=== PATIENT | female | born 1980 | race Caucasian/White ===

== ENCOUNTER 2022-01-14 14:58 | Outpatient (CLI) | payer OTHER, SELFPAY ==
--- NOTE | ~2022-01-14 | MM_ITS ---
EXAMINATION: MM screening micheal BI w marisa HISTORY: Screening mammogram TECHNIQUE: Craniocaudal and mediolateral oblique 3-D tomosynthesis images were obtained and synthetic 2-D images were generated. CAD analysis was submitted and interpreted. COMPARISON: No prior mammogram is available for comparison at this institution. BREAST PARENCHYMAL COMPOSITION: There are scattered areas of fibroglandular density. FINDINGS: There is no evidence of suspicious mass, calcification, or architectural distortion to sugg est malignancy in either breast. There has been no suspicious interval change. IMPRESSION: 1. No mammographic evidence of malignancy. 2. Recommend routine screening mammography in one year. BI-RADS Category 1: Negative Reviewed, dictated and finalized at location A.
== END 2022-01-14 14:59 | disposition home or self-care (01) ==
LOC: ANHIMG 15:05
PROVIDERS: Visit Provider Nurse Practitioner
DX: Z12.31 Encounter for screening mammogram for malignant neoplasm of breast (principal)
CPT/HCPCS: 77063; 77067

== ENCOUNTER 2023-02-23 10:10 | Outpatient (CLI) | payer OTHER, SELFPAY ==
--- NOTE | ~2023-02-23 | MM_ITS ---
EXAMINATION: MM screening micheal BI w marisa HISTORY: Screening mammogram TECHNIQUE: Craniocaudal and mediolateral oblique 3-D tomosynthesis images were obtained and synthetic 2-D images were generated. CAD analysis was submitted and interpreted. COMPARISON: 01/14/2022 bilateral screening mammogram BREAST PARENCHYMAL COMPOSITION: There are scattered areas of fibroglandular density. FINDINGS: There is no evidence of suspicious mass, calcification, or architectural distortion to sugg est malignancy in either breast. There has been no suspicious interval change. IMPRESSION: 1. No mammographic evidence of malignancy. 2. Recommend routine screening mammography in one year. BI-RADS Category 1: Negative Reviewed, dictated and finalized at location A.
== END 2023-02-23 10:11 | disposition home or self-care (01) ==
PROVIDERS: Visit Provider Nurse Practitioner
DX: Z12.31 Encounter for screening mammogram for malignant neoplasm of breast (principal)
CPT/HCPCS: 77063; 77067

== ENCOUNTER 2023-11-11 10:54 | Outpatient (CLI) | payer OTHER, SELFPAY ==
--- NOTE | ~2023-11-11 | MR_ITS ---
MRI of the lumbar spine Clinical History: Radiculopathy Technique: Axial T2-weighted images, and sagittal T1-weighted, T2-weighted, and and T2 fat-sat images were acquired. Findings: There is no fracture or sublocation of the lumbar spine. Vertebral bodies maintain normal h eight and alignment. No bone marrow signal abnormality seen. No significant disc bulge or herniation seen at any lumbar level. There are moderate facet joint dege nerative changes at L4-L5 and L5-S1. No spinal canal stenosis or neural foraminal narrowing evident i n the lumbar spine. Paravertebral soft tissues are unremarkable. Impression: Minimal degenerative change, as above. Reviewed, dictated and finalized at location M. Impression: Minimal degenerative change, as above.
== END 2023-11-11 10:55 ==
LOC: MICIMG 10:55
PROVIDERS: PCP Nurse Practitioner Family; Visit Provider Nurse Practitioner Family
DX: M54.16 Radiculopathy, lumbar region (principal)
CPT/HCPCS: 72148

== ENCOUNTER 2024-01-19 13:21 | Outpatient (CLI) | payer OTHER, SELFPAY ==
--- NOTE | ~2024-01-19 | US_ITS ---
US pelvic complete Ordering provider: Esme Gracia MD History: . abnormal uterine bleeding . Comparison: None. Technique: Transabdominal and endovaginal ultrasound of the pelvis (Doppler ultrasound interrogation techniques used as needed for this exam.) FINDINGS: CERVIX: Normal. UTERUS: Measures 7.9x 4.6x 5.6 cm in length which is within normal limits and is anteverted. No myom etrial masses. ENDOMETRIUM: Normal in thickness measuring 7 mm. No endometrial masses, cysts or fluid. CUL DE SAC: No free fluid. RIGHT OVARY: Normal in size measuring 2.9x 1.7x 2.3 cm. Normal echotexture. Doppler vascular flow pre sent. LEFT OVARY: Normal in size measuring 2.3x 1.5x 2.1 cm. Normal echotexture. Doppler vascular flow pres ent. ADNEXA: Normal. No mass. IMPRESSION: normal pelvic ultrasound. Reviewed, dictated and finalized at location A. IMPRESSION: normal pelvic ultrasound.
== END 2024-01-19 13:22 ==
LOC: MICIMG 13:22
PROVIDERS: PCP Obstetrics & Gynecology Gynecology; Visit Provider Obstetrics & Gynecology Gynecology
DX: N93.8 Other specified abnormal uterine and vaginal bleeding (principal)
CPT/HCPCS: 76856

== ENCOUNTER 2024-05-12 15:42 | Outpatient (CLI) | payer OTHER, SELFPAY ==
--- NOTE | ~2024-05-12 | MM_ITS ---
EXAMINATION: MM screening micheal BI w marisa HISTORY: Screening mammogram TECHNIQUE: Craniocaudal and mediolateral oblique 3-D tomosynthesis images were obtained and synthetic 2-D images were generated. CAD analysis was submitted and interpreted. COMPARISON: 02/23/2023, 01/14/2022 bilateral screening mammogram examinations BREAST PARENCHYMAL COMPOSITION: There are scattered areas of fibroglandular density FINDINGS: There is no evidence of suspicious mass, calcification, or architectural distortion to sugg est malignancy in either breast. There has been no suspicious interval change. IMPRESSION: 1. No mammographic evidence of malignancy. 2. Recommend routine screening mammography in one year. BI-RADS Category 1: Negative Reviewed, dictated and finalized at location A. PURSER
== END 2024-05-12 15:43 | disposition home or self-care (01) ==
LOC: ANHIMG 15:44
PROVIDERS: Visit Provider Obstetrics & Gynecology Gynecology
DX: Z12.31 Encounter for screening mammogram for malignant neoplasm of breast (principal)
CPT/HCPCS: 77063; 77067

== ENCOUNTER 2024-08-10 13:14 | Outpatient (CLI) | payer OTHER, SELFPAY ==
--- NOTE | 2024-08-10 | ECG_ITS ---
Test Date: 2024-08-10 13:41:24 Measurements Intervals [place] Rate: 63 P: 70 WA: 159 QRS: 54 QRSD: 90 T: 47 QT: 406 QTc: 416 Interpretive Statements SINUS RHYTHM WITH SINUS ARRHYTHMIA BASELINE ARTIFACT- II, III, AVR, AVL, AVF NORMAL ECG No previous ECG available for comparison Electronically Signed On 08-10-2024 13:46:16 MRI SPECIALIST by Jerry Vázquez D.O.
--- OUTSIDE RECORDS SUMMARY | 2024-08-10 13:27 | XMS_ITS | Encounter Summary ---
Author Organization [facility] Address [address] [place] [address] Care Team Providers Care Longwall Shearer Operator Name Role Phone Lucy Vaughn Primary Care Provider Reason for Visit * Reason Onset Date Comments MEDICATION REFILL 09/28/2023 Encounter Details Date Type Department Care Team (Late st Contact Info) Description 09/28/[address] [facility] Medical [facility] - Family Medicine [address] [place] [phone] Lucy Vaughn APRN-CNP [address] [place] [phone] MEDICATION REFILL Social History Tobacco Use Types Packs/Day Years Used Date Smoking Tobacco: Never Smokeless Tobacco: Never Alcohol Use Standard Drinks/Week Comments Yes 0 (1 standard drink = 0.6 oz pur e alcohol) occasionally wine PHQ-2 Answer Date Recorded Patient Health Questionnaire-2 Score 0 08/05/2023 Sex and Gender Information Value Date Recorded Sex Assigned at Not on file Gender Identity Not on file Sexual Orientation Not on file documented as of this encounter Plan of Treatment Not on file documented as of this encounter Visit Diagnoses Diagnosis Chronic pain of left knee Pain in joint, lower leg Chronic bilateral low back pain, unspecified whether sciatica present Fibromyalgia Mylagia and myositis, unspecified documented in this encounter Care Teams Longwall Shearer Operator Relationship Specialty Start Date End Date Lucy Vaughn APRN-CNP PCP - General Nurse Practitioner 07/24/16 documented as of this encounter
--- OUTSIDE RECORDS SUMMARY | 2024-08-10 13:27 | XMS_ITS | Clinical Summary ---
Author Organization [facility] Address [address] [place] [id number] Care Team Providers Care Turner Machine Name Role Phone Unavailable Primary Care Provider Unavailabl e Social History Tobacco Use Types Packs/Day Years Used Date Smoking Tobacco: Never Assessed Comments Unknown Sex and Gender Information Value Date Recorded Sex Assigned at Not on file Legal Sex Female 8:25 PM CDT Gender Identity Not on file Sexual Orientation Not on file Last Filed Vital Signs Vital Sign Reading Time Taken Comments Blood Pressure 127/84 04/09/2017 8:32 AM CDT Pulse 90 04/09/2017 8:32 AM CDT Temperature - - Respiratory Rate - - Oxygen Saturation - - Inhaled Oxygen Concentration - - Weight 87.5 kg (193 lb) 04/09/2017 8:32 AM CDT Height 160 cm (5' 3 ) 04/09/2017 8:32 AM CDT Body Mass Index 34.19 04/09/2017 8:32 AM CDT Plan of Treatment Health Maintenance Due Date Last Done Comments Cervical Cancer Screening Pa p Smear (Age 30 to 64) Every 3 Years 1982 Annual Physical 1985 Hepatitis C 2000 DTaP, Tdap and Td Vaccines ( 1 - Tdap) 2001 Hepatitis B Vaccines (1 of 3 - 19+ 3-dose series) 2001 Cervical Cancer Screening Pa p with HPV Testing (Age 30 to 64) Every 5 Years 2012 Cervical Cancer Screening with HPV 2012 Mammogram Screening 2022 COVID-19 Vaccine ( - 2023-2 5 season) 2024 Influenza Adult (#1) 2024 HPV Vaccines Aged Out No longer eligi ble based on patient's age to complete this topic Meningococcal B Vaccine Aged Out No l onger eligible based on patient's age to complete this topic Meningococcal Vaccine Aged Out No jessica nan eligible based on patient's age to complete this topic Pneumococcal Vaccine: Pediat rics (0 to 5 Years) and At-Risk Patients (6 to 64 Years) Aged Out No longer eligible b ased on patient's age to complete this topic RSV Immunizations Under 20 Months Aged Out No longer eligible based on patient's age to complete this topic
--- OUTSIDE RECORDS SUMMARY | 2024-08-10 13:27 | XMS_ITS | Clinical Summary ---
Author Organization [facility] Physician Office Building [address] [place] [phone] Care Team Providers Care Diver'S Tender Name Role Phone Unknown, Notinfile Primary Care Provider Unavail able Allergies No known active allergies Medications levothyroxine (SYNTHROID) 88 mcg tablet TAKE 1 TABLET(88 MCG) BY MOUTH RELIABILITY MANAGER AND BEFORE BREAKFAST 90 tablet 3 2 Active Active Problems Problem Noted Date Diagnosed Date Acquired hypothyroidism 03/08/2018 Assessment & Plan (02/25/2021 1:13 PM CDT): Thyroid function tests, including TSH and free T4 were requested Will adjust dose of Levothyroxine accordingly . If there is a need to make changes, will recheck levels in 2-3 months. Instructions to patient on taking medication properly : in the morning, on an empty stomach , 1 h part from food and/or other meds. Assessment & Plan (01/25/2020 10:50 AM CDT): Thyroid function tests, including TSH and free T4 were requested Will adjust dose of Levothyroxine accordingly . If there is a need to make changes, will recheck levels in 2-3 months. Instructions to patient on taking medication properly : in the morning, on an empty stomach , 1 h part from food and/or other meds. Also it was explained , to the patient that if any doses are missed, can take 2-3 tab together ,to make up for the missed dose(s) and to make sure at the end to the week, 7 tabs have been taken. Assessment & Plan (01/17/2019 12:13 PM CDT): Will check TSH and free T4 Will adjust dose of Levothyroxine accordingly . If there is a need to make changes, will recheck levels in 2-3 months. Send 90 d rx Assessment & Plan (07/19/2018 1:42 PM GARBAGE TRUCK DRIVER): Continue Levothyroxine at current dose Assessment & Plan (03/08/2018 9:40 AM CDT): Your goal of treatment is to keep TSH and free T4 within normal range. Take your thyroid medication on empty stomach, preferably in the morning, 1 hour apart from food and other medications. Due to the narrow therapeutic range of Levothyroxine ( small changes in dose make a big difference on thyroid medication blood levels ) , brand name is strongly recommended. The medication should be taken daily. If one or more pills are missing in a week, they can be taken all together at once, making sure at the end of the week, all 7 tabs have been taken. Your goal of treatment is to keep TSH and free T4 within normal range. Take your thyroid medication on empty stomach, preferably in the morning, 1 hour apart from food and other medications. Due to the narrow therapeutic range of Levothyroxine ( small changes in dose make a big difference on thyroid medication blood levels ) , brand name is strongly recommended. The medication should be taken daily. If one or more pills are missing in a week, they can be taken all together at once, making sure at the end of the week, all 7 tabs have been taken. Use of LT3 was also discussed . Will check TFT's Consider adding T3 Will stop Levothyroxine and start Brand -name Synthroid. Medical History Medical History Date Comments Hypothyroidism Family History Medical History Relation Name Comments Hypothyroidism Mother Sherron's thyroiditis Sister Relation Name Status Comments Father Alive Mother Alive Sister Alive Social History Tobacco Use Types Packs/Day Years Used Date Smoking Tobacco: Never Smokeless Tobacco: Never Alcohol Use Standard Drinks/Week Comments No 0 (1 standard drink = 0.6 oz pur e alcohol) PHQ-2 Answer Date Recorded PHQ-2 Total Score (If total score is 3 or more points, staff should administer the PHQ-9) 0 01/25/2020 Personal Safety Answer Date Recorded Getting School Help Needed Not on file 08/20 Comments Unknown Sex and Gender Information Value Date Recorded Sex Assigned at Not on file Legal Sex Female 8:29 AM CDT Gender Identity Not on file Sexual Orientation Not on file Obstetrics History Last Filed Vital Signs Vital Sign Reading Time Taken Comments Blood Pressure 110/70 02/25/2021 12:52 PM CDT Pulse 86 02/25/2021 12:52 PM CDT Temperature 36.7 C (98 F) 05/10/2020 10:07 AM GARBAGE TRUCK DRIVER Respiratory Rate 16 02/25/2021 12:52 PM CDT Oxygen Saturation 100% 05/10/2020 10:07 AM GARBAGE TRUCK DRIVER Inhaled Oxygen Concentration - - Weight 88.7 kg (195 lb 9.6 oz) 02/25/2021 12:52 PM CDT Height 160 cm (5' 2.99 ) 02/25/2021 12:52 PM CDT Body Mass Index 34.66 02/25/2021 12:52 PM CDT Plan of Treatment Not on file Insurance [facility] CLAIMS Care Teams Diver'S Tender Relationship Specialty Start Date End Date Unknown, Notinfile PCP - General 02/15/18
--- OUTSIDE RECORDS SUMMARY | 2024-08-10 13:27 | XMS_ITS | Clinical Summary ---
Author Organization [facility] Address [address] Attn: Epic Prelude ADT KENNETH THOMAS [phone] Care Team Providers Care Active Directory Architect Name Role Phone Unavailable Primary Care Provider Unavailabl e Social History Tobacco Use Types Packs/Day Years Used Date Smoking Tobacco: Never Assessed Comments Unknown Sex and Gender Information Value Date Recorded Sex Assigned at Not on file Legal Sex Female 3:08 AM WELDING MANAGER Gender Identity Not on file Sexual Orientation Not on file Plan of Treatment Health Maintenance Due Date Last Done Comments DTAP/TDAP/TD VACCINES (1 - Tdap) 2001 HEPATITIS B VACCINES (1 of 3 - 19+ 3-dose series) 2001 CERVICAL CANCER SCREENING 2012 BREAST CANCER SCREENING 2022 INFLUENZA VACCINE (#1) 2024 HPV VACCINES Aged Out No longer eligi ble based on patient's age to complete this topic PNEUMOCOCCAL VACCINE 0-64 YEARS Aged Out No longer eligible based on patient's age to complete this topic
--- OUTSIDE RECORDS SUMMARY | 2024-08-10 13:27 | XMS_ITS | Encounter Summary ---
Author Organization [facility] Address [address] [place] [address] Care Team Providers Care Gate Watchman Name Role Phone Lucy Vaughn Primary Care Provider Reason for Visit * Reason Onset Date Comments MEDICATION REFILL 06/23/2024 Encounter Details Date Type Department Care Team (Late st Contact Info) Description 06/23/2024 Refill [facility] Medical [facility] - Family Medicine [address] [place] [phone] Lucy Vaughn APRN-CNP [address] [place] [phone] MEDICATION REFILL Social History Tobacco Use Types Packs/Day Years Used Date Smoking Tobacco: Never Smokeless Tobacco: Never Alcohol Use Standard Drinks/Week Comments Yes 0 (1 standard drink = 0.6 oz pur e alcohol) occasionally wine PHQ-2 Answer Date Recorded Patient Health Questionnaire-2 Score 0 06/08/2024 Sex and Gender Information Value Date Recorded Sex Assigned at Not on file Gender Identity Not on file Sexual Orientation Not on file documented as of this encounter Miscellaneous Notes * Telephone Encounter - Tiffani Jackson RN - 06/23/2024 11:25 AM CST MEDICATION FILLED PER PROTOCOL Disposition of prescription: e-prescribed to preferred pharmacy Response to patient: None necessary NCE WEIGHER documented in this encounter Plan of Treatment Not on file documented as of this encounter Visit Diagnoses Not on filedocumented in this encounter Care Teams Gate Watchman Relationship Specialty Start Date End Date Lcuy Vaughn APRN-CLERGY MEMBER PCP - General Nurse Practitioner 07/24/16 documented as of this encounter
--- OUTSIDE RECORDS SUMMARY | 2024-08-10 13:27 | XMS_ITS | Encounter Summary ---
Author Organization [facility] Address [address] [place] [address] Care Team Providers Care Neon Light Installer Name Role Phone Lucy Vaughn Primary Care Provider Reason for Visit * Reason Onset Date Comments MEDICATION REFILL 08/29/2023 Encounter Details Date Type Department Care Team (Late st Contact Info) Description 08/29/2023 Refill [facility] Medical [facility] - Family Medicine [address] [place] [phone] Lucy Vaughn APRN-CNP [address] [place] [phone] MEDICATION REFILL Social History Tobacco Use [...] encounter Miscellaneous Notes * Telephone Encounter - Annette De Oliveira - 08/30/2023 7:08 AM CDT Last ov 08/05/23 Next ov 02/03/24 documented in this encounter Plan of Treatment Not on file documented as of this encounter Visit Diagnoses Not on filedocumented in this encounter Care Teams Neon Light Installer Relationship Specialty Start Date End Date Lucy Vaughn APRN-TALIA PCP - General Nurse Practitioner 07/24/16 documented as of this encounter
--- OUTSIDE RECORDS SUMMARY | 2024-08-10 13:27 | XMS_ITS | Referral Summary ---
Author Organization [facility] Physician Office Building [address] [place] [phone] Care Team Providers Care Operations Assistant Name Role Phone Unknown, Notinfile Primary Care Provider Unavail able Allergies No known active allergies Medications levothyroxine (SYNTHROID) 88 mcg tablet TAKE 1 TABLET(88 MCG) BY MOUTH CAT SCAN TECHNOLOGIST AND BEFORE BREAKFAST 90 tablet 3 2 [...] rx Assessment & Plan (07/19/2018 1:42 PM WELDER/FABRICATOR): Continue Levothyroxine at current dose Assessment & [...] stop Levothyroxine and start Brand -name Synthroid. Social History Tobacco Use Types Packs/Day Years [...] 36.7 C (98 F) 05/10/2020 10:07 AM WELDER/FABRICATOR Respiratory Rate 16 02/25/2021 12:52 PM CDT Oxygen Saturation 100% 05/10/2020 10:07 AM WELDER/FABRICATOR Inhaled Oxygen Concentration - - Weight 88.7 kg (195 lb 9.6 oz) 02/25/2021 12:52 PM CDT Height 160 cm (5' 2.99 ) 02/25/2021 12:52 PM CDT Body Mass Index 34.66 02/25/2021 12:52 PM CDT Plan of Treatment Not on file Insurance [facility] CLAIMS Care Teams Operations Assistant Relationship Specialty Start Date End Date Unknown, Notinfile PCP - General 02/15/18
--- OUTSIDE RECORDS SUMMARY | 2024-08-10 13:27 | XMS_ITS | Encounter Summary ---
Author Organization [employer] [facility] Address [address] [place] [address] Care Team Providers Care International Sales Manager Name Role Phone Unavailable Primary Care Provider Unavailabl e Encounter Details Date Type Department Care Team (Latest Contact Info) Description 09/16/2006 Outpatient Historical HIS PATIENT IN A BED Ligia Avalos MD [address] [place] [address] [address] [place] [address] Threatened Premature Labor, Antepartum (Primary Dx) Social History Tobacco Use Types Packs/Day Years Used Date Smoking Tobacco: Never Assessed Comments Unknown Sex and Gender Information Value Date Recorded Sex Assigned at Not on file Legal Sex Female 3:08 AM WELDER JOURNEYMAN Gender Identity Not on file Sexual Orientation Not on file documented as of this encounter Plan of Treatment Not on file documented as of this encounter Procedures Procedure Name Priority Date/Time Associated Diagnosis Comments URINALYSIS WITH REFLEX CULTURE Routine 09/16/2006 9:45 AM CDT URINALYSIS W/REFLEX MICROSCOPIC Routine 09/16/2006 9:45 AM CDT documented in this encounter Results * URINALYSIS (09/16/2006 9:45 AM CDT) COLOR UA Yellow INTERFACE SYSTEM CLARITY UA Clear Clear INTERFACE SYSTEM SPECIFIC GRAVITY UA 1.008 1.001 - 1.035 INTERFACE SYSTEM PH UA 6.5 5.0 - 8.0 INTERFACE SYSTEM LEUKOCYTE ESTERASE UA Negative Negative INTERFACE SYSTEM NITRITE UA Negative Negative INTERFACE SYSTEM PROTEIN UA Negative Negative INTERFACE SYSTEM GLUCOSE UA Negative Negative INTERFACE SYSTEM KETONES UA Negative Negative INTERFACE SYSTEM UROBILINOGEN UA <1 <=1 mg/dL INTE RFACE SYSTEM BILIRUBIN UA Negative Negative INTERFA CE SYSTEM BLOOD UA Negative Negative INTERFACE SYSTEM 09/16/2006 9:45 AM CDT Ligia Avalos MD URINE ORDERABLES Edited Performing Organization Address [facility] Phone Number INTERFACE SYSTEM Refer to clinic/hospital department * URINALYSIS WITH REFLEX CULTURE (09/16/2006 9:45 AM CDT) URINE CULTURE ORDER Not indicated INTERFACE SYSTEM Comment: Criteria for a reflex culture include one or more of the following: Abn ormal nitrite, leukocyte esterase, WBCs or RBCs. Lack of qualifying criteria does not exclude the possiblity of a urinary tract infection. Dilute urine, drug interference, etc. may decrease the sensitivity of the criteria analytes. 09/16/2006 9:45 AM CDT Ligia Avalos MD URINE ORDERABLES Edited Performing Organization Address [facility] Phone Number INTERFACE SYSTEM Refer to clinic/hospital department documented in this encounter Visit Diagnoses Diagnosis Threatened premature labor, antepartum(644.03)- Primary Threatened premature labor, antepartum documented in this encounter
--- OUTSIDE RECORDS SUMMARY | 2024-08-10 13:27 | XMS_ITS | Encounter Summary ---
Author Organization [facility] Address [address] [place] [address] Care Team Providers Care Public Address System Installer Name Role Phone Lucy Vaughn Primary Care Provider Reason for Referral * OP/Amb RFL Auth (Routine) - Open Specialty Diagnoses / Procedures Referred By Perla kelley Referred To Contact Cardiology Diagnoses Tachycardia Chest tightness Procedures EKG 12-LEAD Lucy Vaughn APRN-CNP [address] [place] [address] Referral ID Status Reason Start Date Expiration Date Visits Re quested Visits Authorized [id number] Open 08/10/2024 08/10/2025 1 1 CH OPTIMIZATION ANALYST * (Routine) - Open Specialty Diagnoses / Procedures Referred By Perla kelley Referred To Contact Diagnoses Tachycardia Anemia, unspecified type Dizziness Chest tightness Procedures C-REACTIVE PROTEIN SENSITIVE Lucy Vaughn APRN-CNP [address] [place] [address] Referral ID Status Reason Start Date Expiration Date Visits Re quested Visits Authorized [id number] Open 08/10/2024 08/10/2025 1 1 CH OPTIMIZATION ANALYST Encounter Details Date Type Department Care Team (Late st Contact Info) Description 08/10/2024 Orders Only [facility] Medical [facility] - Family Medicine [address] [place] [phone] Lucy Vaughn APRN-CNP [address] [place] [address] Acquired hypothyroidism ; Tachycardia; Anemia, unspecified type; Dizziness; Chest tightness; Acute cough Social History Tobacco Use Types Packs/Day Years [...] as of this encounter Plan of Treatment Scheduled Orders Name Type Priority Associated Diagnoses Orde r Schedule CBC WITH DIFFERENTIAL Lab Routine Tachycardia Anemia, unspecified type Dizziness Chest tightness Ordered: 08/10/2024 COMPREHENSIVE METABOLIC PANEL Lab Routine Tachycardia Dizziness Chest tightness Ordered: 08/10/2024 C-REACTIVE PROTEIN SENSITIVE Lab Routine Tachycardia Anemia, unspecified type Dizziness Chest tightness Ordered: 08/10/2024 FERRITIN Lab Routine Anemia, unspecified type Dizziness Chest tightness Ordered: 08/10/2024 TSH Lab Routine Acquired hypothyroidism Dizziness Chest tightness Ordered: 08/10/2024 T4 FREE Lab Routine Acquired hypothyroidism Dizziness Chest tightness Ordered: 08/10/2024 IRON + TRANSFERRIN PANEL Lab Routine Anemia, unspecified type Dizziness Chest tightness Ordered: 08/10/2024 EKG 12-LEAD ECG Routine Tachycardia Chest tightness 1 Occurrences starting 08/10/2024 until 08/10/2025 XR Chest 2Vw Imaging Routine Chest tightness Acute cough 1 Occurrences starting 08/10/2024 until 08/10/2025 documented as of this encounter Visit Diagnoses Diagnosis Acquired hypothyroidism- Primary Tachycardia Tachycardia, unspecified Anemia, unspecified type Dizziness Dizziness and giddiness Chest tightness Other chest pain Acute cough documented in this encounter Care Teams Public Address System Installer Relationship Specialty Start Date End Date Lucy Vaughn APRN-CNP PCP - General Nurse Practitioner 07/24/16 documented as of this encounter
--- OUTSIDE RECORDS SUMMARY | 2024-08-10 13:27 | XMS_ITS | Clinical Summary ---
Author Organization [facility] Address [address] [place] [address] Care Team Providers Care Livestock Auctioneer Name Role Phone Lucy Vaughn APRN-PAPER PROCESSING MACHINE HELPER Primary Care Provider Source Comments [facility],non-owned Affiliates and Associated Physician Practices is amultiple site organization consisting of ambulatory clinics and hospital sitesin [place], [place], [place] and [place]. This disclosure is being madepursuant to the Care Everywhere program and may not contain all information available regarding this patient. Last updated 18.[facility] Allergies No known active allergies Medications * Be aware that medications may not be up to date on this document. Alwaysverify current medications with the patient. Medication Sig Dispensed Refills Start Date End Date Status Multiple Vitamin (MULTI-VITAMIN DAILY PO) Active Colchicine 0.6 MG capsule DAY 1 TAKE 2 CAPSULES BY MOUTH ONCE, FOLLOWED BY 1 CAPSULE ONE HOUR LATER, THEN STARTING ON DAY 2 TAKE 1 CAPSULE DAILY UNTIL FLARE RESOLVES 90 capsule 05/06/2023 Active gabapentin (Neurontin) 300 MG capsule Take 1 (one) capsule by mouth at bedtime 30 capsule 1 05/19/2023 Active phentermine (Adipex-P) 37.5 MG tablet Take 1 (one) tablet by mouth once daily 30 tablet 10/13/2023 Active triamcinolone acetonide (Kenalog) 0.1 % cream Apply to affected area 2 times daily 60 g 1 02/03/2024 Active predniSONE (Deltasone) 10 MG tablet Take 4 tabs in the A.M. X 3 days, then take 3 tabs in the A.M. X 3 days, Then take 2 tabs in the A.M. X 3 days then take 1 tab in the A.M. for 3 days 30 tablet 02/08/2024 Active levothyroxine (Synthroid) 88 MCG tablet TAKE 1 TABLET BY MOUTH DAILY BEFORE BREAKFAST 90 tablet 05/23/2024 Active ondansetron, disintegrating, (Zofran ODT) 4 MG tablet Take 1 (one) tablet by mouth every 6 hours as needed for Nausea/Vomiting Allow tablet to dissolve on the tongue 20 tablet 06/23/2024 Active fluconazole (Diflucan) 150 MG tablet Take 1 tablet PO x1 then repeat in 48 hours 2 tablet 07/18/2024 Active fluconazole (Diflucan) 150 MG tablet Take 1 tablet PO x1 then repeat in 48 hours 2 tablet 07/06/2024 07/18/2024 Discontinued (Clinical Decision) Active Problems Problem Noted Date Diagnosed Date Knee pain 10/01/2022 Overview (10/01/2022): left Uses oral contraceptives 10/01/2022 General counseling for prescription of oral cont raceptives 11/27/2021 Sebaceous cyst of skin of breast 11/27/2021 Encounter for pre-operative examination 04/16/20 21 10/26/2022 Acquired hypothyroidism 03/08/2018 Overview (11/27/2021): Last Assessment & Plan: Thyroid function tests, including TSH and free T4 were requested Will adjust dose of Levothyroxine accordingly . If there is a need to make changes, will recheck levels in 2-3 months. Instructions to patient on taking medication properly : in the morning, on an empty stomach , 1 h part from food and/or other meds. 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 Resolved Problems Problem Noted Date Diagnosed Date Resolved Date Acute sinusitis 12/04/2013 04/07/2017 Encounters Date Type Department Care Team Description 08/10/2024 Orders Only [address] [phone] Lucy Vaughn APRN-CNP Acquired hypothyroidism ; Tachycardia; Anemia, unspecified type; Dizziness; Chest tightness; Acute cough 07/18/2024 Orders Only [address] [phone] Lucy Vaughn APRN-CNP 07/06/2024 Orders Only [address] [phone] Lucy Vaughn APRN-CNP 06/23/[address] [phone] Lucy Vaughn APRN-CNP MEDICATION REFILL 06/08/2024 2:00 PM CERTIFIED NURSE PRACTITIONER Video Visit [address] [phone] Lucy Vaughn APRN-CNP Acquired hypothyroidism 05/22/[address] [phone] Lucy Vaughn APRN-CNP Refill Request from Last 3 Months Immunizations Name Administration Dates Next Due FLU VACCINE QUAD IIV4 SPLIT 0.25 ML IM 5 INFLUENZA VACCINE 04/23/2015,04/11/2013 TDAP (7yrs+) 04/23/2015,03/06/2014 Family History Medical History Relation Name Comments Diabetes Maternal Grandfather Cancer - Breast Maternal Grandmother late 40's early 50's Hyperlipidemia Mother Thyroid Disease Mother Relation Name Status Comments Father Alive Maternal Grandfather Maternal Grandmother Mother Alive Paternal Grandfather Alive Paternal Grandmother Alive Social History Tobacco Use Types Packs/Day Years Used Date Smoking Tobacco: Never Smokeless Tobacco: Never Tobacco Cessation:Counseling Given: No Alcohol Use Standard Drinks/Week Comments Yes 0 (1 standard drink = 0.6 oz pur e alcohol) occasionally wine PHQ-2 Answer Date Recorded Patient Health Questionnaire-2 Score 0 06/08/2024 Sex and Gender Information Value Date Recorded Sex Assigned at Not on file Gender Identity Not on file Sexual Orientation Not on file Last Filed Vital Signs Vital Sign Reading Time Taken Comments Blood Pressure 117/80 08/05/2023 3:24 PM CERTIFIED NURSE PRACTITIONER Pulse 77 08/05/2023 3:24 PM CERTIFIED NURSE PRACTITIONER Temperature 37.1 C (98.7 F) 08/05/2023 3:24 PM CERTIFIED NURSE PRACTITIONER Respiratory Rate 16 03/11/2017 8:39 AM CDT Oxygen Saturation 94% 08/05/2023 3:24 PM CERTIFIED NURSE PRACTITIONER Inhaled Oxygen Concentration - - Weight 80.3 kg (177 lb) 08/05/2023 3:24 PM CERTIFIED NURSE PRACTITIONER Height 160 cm (5' 3 ) 08/05/2023 3:24 PM CERTIFIED NURSE PRACTITIONER Body Mass Index 31.35 08/05/2023 3:24 PM CERTIFIED NURSE PRACTITIONER Plan of Treatment Health Maintenance Due Date Last Done Comments MAMMOGRAM 1982 HEPATITIS B VACCINE (1 of - 19+ 3-dose series) 2001 COVID-19 VACCINE ( season) 2024 INFLUENZA VACCINE (#1) 2024 5, 04/19/2015, 04/11/2013 DEPRESSION SCREENING 06/21/2024 08/05/2023, 10/01/2022, 02/24/2022 DTAP/TDAP/TD VACCINES (3 - Td or Tdap) 04/23/2025 04/23/2015, 03/06/2014 PAP SMEAR 12/14/2025 12/14/2022, 06/21 (Previously completed) SCREENING FOR DIABETES 10/01/2026 , 06/08/2022, 04/12/2017, Additional history exists LIPID TESTING 10/01/2028 10/02/2023 ZOSTER VACCINE (1 of 2) 2032 HEPATITIS C SCREENING Discontinued HIB VACCINE Aged Out No longer eligi ble based on patient's age to complete this topic HIV SCREENING Discontinued HPV VACCINE Aged Out No longer eligi ble based on patient's age to complete this topic MENINGOCOCCAL (Group B) VACCINE Aged Out No longer eligible based on patient's age to complete this topic MENINGOCOCCAL VACCINE Aged Out No jessica nan eligible based on patient's age to complete this topic PNEUMOCOCCAL VACCINE Aged Out No long er eligible based on patient's age to complete this topic Procedures Procedure Name Priority Date/Time Associated Diagnosis Comments COMPREHENSIVE METABOLIC PANEL 10/02/2023 9:26 AM CDT LIPID PROFILE 10/02/2023 9:26 AM CDT PAP SMEAR REPORT ORDER 12/14/2022 from Last 3 Months or Most Recently Relevant to Health Maintenance Results * COMPREHENSIVE METABOLIC PANEL (10/02/2023 9:26 AM CDT) Glucose 92 70 - 99 mg/dL [facility] INSURANCE BILL BUN 9 6 - 24 mg/dL [facility] INSURANCE BILL Creatinine 0.84 0.57 - 1.00 mg/dL [facility] INSURANCE BILL eGFR by CKD-EPI 89 >59 mL/min/1.7 3 [facility] INSURANCE BILL BUN/Creatinine Ratio 11 9 - 23 [facility] INSURANCE BILL Sodium 139 134 - 144 mmol/L [facility] INSURANCE BILL Potassium 4.7 3.5 - 5.2 mmol/L [facility] INSURANCE BILL Chloride 101 96 - 106 mmol/L [facility] INSURANCE BILL CO2 25 20 - 29 mmol/L [facility] INSURANCE BILL Calcium 9.4 8.7 - 10.2 mg/dL [facility] INSURANCE BILL Protein Total 6.9 6.0 - 8.5 g/dL [facility] INSURANCE BILL Albumin 4.3 3.9 - 4.9 g/dL [facility] INSURANCE BILL Globulin Total 2.6 1.5 - 4.5 g/dL [facility] INSURANCE BILL Albumin/Globulin Ratio 1.7 1.2 - 2.2 [facility] INSURANCE BILL Bilirubin Total 0.3 0.0 - 1.2 mg/dL [facility] INSURANCE BILL Alkaline Phosphatase 91 44 - 121 IU/L [facility] INSURANCE BILL AST 18 0 - 40 IU/L [facility] INSURANCE BILL ALT 16 0 - 32 IU/L [facility] INSURANCE BILL Comment:FASTING 10/02/2023 9:26 AM CDT 10/02/2023 Narrative Resulting Agency Comment Lab Testing performed at: [facility] [address] [phone] Lucy Vaughn BANK APPRAISER-PAPER PROCESSING MACHINE HELPER LAB - CHEMISTRY ORDERABLES Performing Organization Address [facility] Co de Phone Number [facility] INSURANCE BILL [address] [place] [address] * (ABNORMAL) LIPID PROFILE (10/02/2023 9:26 AM CDT) Cholesterol 197 100 - 199 mg/dL [facility] INSURANCE BILL Triglycerides 119 0 - 149 mg/dL [facility] INSURANCE BILL HDL Cholesterol 53 >39 mg/dL [facility] INSURANCE BILL VLDL Calculated 21 5 - 40 mg/dL [facility] INSURANCE BILL LDL Calculated 123(H) 0 - 99 mg/dL [facility] INSURANCE BILL Comment NOT AVAILABLE [facility] INSURANCE BILL Comment: FASTING Result cannot be obtained for this observation. 10/02/2023 9:26 AM CDT 10/02/2023 Narrative Resulting Agency Comment Lab Testing performed at: [facility] [address] [phone] Lucy Vaughn APRN-PAPER PROCESSING MACHINE HELPER LAB - CHEMISTRY ORDERABLES Performing Organization Address [facility] Co de Phone Number [facility] INSURANCE BILL [address] [place] [address] * PAP SMEAR REPORT ORDER (12/14/2022) 12/14/2022 Narrative 12/14/2022 Ordered by an unspecified provider. Scanned Document LAB - PATHOLOGY/CYTO LOGY ORDERABLES from Last 3 Months or Most Recently Relevant to Health Maintenance Care Teams Livestock Auctioneer Relationship Specialty Start Date End Date Lucy Vaughn, BANK APPRAISER-PAPER PROCESSING MACHINE HELPER PCP - General Nurse Practitioner 07/24/16
--- OUTSIDE RECORDS SUMMARY | 2024-08-10 13:28 | XMS_ITS | Referral Summary ---
Author Organization [facility] Address [address] [place] [address] Care Team Providers Care Beverage Inspection Machine Tender Name Role Phone Lucy Vaughn Primary Care Provider Source Comments [facility],non-owned Affiliates and Associated Physician Practices is amultiple site organization consisting of ambulatory clinics and hospital sitesin [place], [place] and [place]. This disclosure is being madepursuant to the Care Everywhere program and may not contain all information available regarding this patient. Last updated 18.[facility] Encounters Date Type Department Care Team Description 08/10/2024 Orders Only [facility] Family [address] [phone] Lucy Vaughn APRN-CNP Acquired hypothyroidism ; Tachycardia; Anemia, unspecified type; Dizziness; Chest tightness; Acute cough 07/18/2024 Orders Only [facility] [address] [phone] Lucy Vaughn APRN-CNP 07/06/2024 Orders Only [address] [phone] Lucy Vaughn APRN-CNP 06/23/2024 Refill [facility] Medicine [address] [place] [phone] Lucy Vaughn APRN-CNP MEDICATION REFILL 06/08/2024 2:00 PM MILK CONDENSER Video Visit [facility] [address] [place] [phone] Lucy Vaughn APRN-CNP Acquired hypothyroidism 05/22/2024 Refill [facility] [address] [place] [phone] Lucy Vaughn APRN-CNP Refill Request from Last 3 Months Allergies No known active allergies Medications * [...] Date Resolved Date Acute sinusitis 12/04/2013 04/07/2017 Immunizations Name Administration Dates Next Due FLU VACCINE QUAD IIV4 SPLIT 0.25 ML IM 5 INFLUENZA VACCINE 04/23/2015,04/11/2013 TDAP (7yrs+) 04/23/2015,03/06/2014 Social History Tobacco Use Types Packs/Day Years [...] Comments Blood Pressure 117/80 08/05/2023 3:24 PM MILK CONDENSER Pulse 77 08/05/2023 3:24 PM MILK CONDENSER Temperature 37.1 C (98.7 F) 08/05/2023 3:24 PM MILK CONDENSER Respiratory Rate 16 03/11/2017 8:39 AM CDT Oxygen Saturation 94% 08/05/2023 3:24 PM MILK CONDENSER Inhaled Oxygen Concentration - - Weight 80.3 kg (177 lb) 08/05/2023 3:24 PM MILK CONDENSER Height 160 cm (5' 3 ) 08/05/2023 3:24 PM MILK CONDENSER Body Mass Index 31.35 08/05/2023 3:24 PM MILK CONDENSER Plan of Treatment Not on file Procedures Procedure Name Priority Date/Time Associated Diagnosis [...] Resulting Agency Comment [facility]: [facility] [address] [phone] Lucy Vaughn APRN-PRICE ACCURACY SUPERVISOR LAB - CHEMISTRY ORDERABLES Performing Organization Address [facility] Co de Phone Number [facility] INSURANCE BILL [address] [place] [address] * (ABNORMAL) LIPID PROFILE (10/02/2023 9:26 AM [...] Resulting Agency Comment Lab [facility] performed at: [facility] [address] [phone] Lucy Vaughn APRN-PRICE ACCURACY SUPERVISOR LAB - CHEMISTRY ORDERABLES Performing Organization Address [facility] Co de Phone Number [facility] INSURANCE BILL [address] [place] [address] * PAP SMEAR REPORT ORDER (12/14/2022) 12/14/2022 Narrative 12/14/2022 Ordered by an unspecified provider. Scanned Document LAB - PATHOLOGY/CYTO LOGY ORDERABLES from Last 3 Months or Most Recently Relevant to Health Maintenance Care Teams Beverage Inspection Machine Tender Relationship Specialty Start Date End Date Lucy Vaughn APRN-PRICE ACCURACY SUPERVISOR PCP - General Nurse Practitioner 07/24/16
== END 2024-08-10 13:15 | disposition home or self-care (01) ==
DX: R00.0 Tachycardia, unspecified (principal); R07.89 Other chest pain; R94.31 Abnormal electrocardiogram [ECG] [EKG]
CPT/HCPCS: 93005

== ENCOUNTER 2024-08-10 13:50 | Outpatient (CLI) | payer OTHER, SELFPAY ==
--- NOTE | ~2024-08-10 | XR_ITS ---
EXAMINATION: XR chest 2V 08/10/2024 14:11 INDICATION: Chest tightness and cough PROCEDURE: 2 view chest COMPARISON: 08/27/2018 FINDINGS: The lungs are clear. The cardiomediastinal silhouette is within normal limits. There are no pleural effusions. There is no pneumothorax suspected. IMPRESSION: 1: NO ACUTE CARDIOPULMONARY DISEASE. Reviewed, dictated and finalized at location B. TY DEMONSTRATOR
== END 2024-08-10 13:51 | disposition home or self-care (01) ==
DX: R07.89 Other chest pain (principal); R05.1 Acute cough
CPT/HCPCS: 71046